=== PATIENT | male | born 1940 | race African-American/Black ===

== ENCOUNTER 2018-01-22 09:09 | Inpatient (IN) | payer MEDICARE ==
[~2018-01-22] VITALS: Ht 165.1 cm; Wt 80.3 kg
[2018-01-22 10:15] LABS: BASOPHILS % 0.6 % (0.0-2.0); HEMOGLOBIN. 14.7 g/dL (14.0-18.0); MEAN CORPUSCULAR HEMOGLOBIN 28.8 pg (28.0-32.0); MEAN CORPUSCULAR VOLUME 88.1 fL (80.0-94.0); MEAN PLATELET VOLUME 8.1 fl (7.4-10.4); MONOCYTES % 6.3 % (2.0-8.0); NEUTROPHILS % 78.1 % (40.0-76.0); PLATELET 143 x1000/uL (130-400)
[2018-01-22 10:22] LABS: CHLORIDE 105 mEq/L (98-107)
[2018-01-22 10:27] LABS: INR 1.1; PROTHROMBIN TIME 11.1 sec (9.1-11.1)
[2018-01-22] MEDS ORDERED: ASPIRIN 325MG EC TABLET PO ONE (10:45)
[2018-01-22] MEDS ORDERED: LIDOCAINE HCL/PF 1% 2ML VIAL ONE (12:56)
[2018-01-22 13:35] VITALS: BP 137/62
[2018-01-22] MEDS ORDERED: HYDROCODONE/ACETAMINOPHEN 10/325MG TABLET PO PRN (14:00)
[2018-01-22] MEDS ORDERED: ACETAMINOPHEN 650MG/20.3ML UDC GT PRN (14:00)
[2018-01-22] MEDS ORDERED: ONDANSETRON HCL 4MG/2ML INJ IV PRN (14:00)
[2018-01-22] MEDS ORDERED: MAGNESIUM/ALUMINUM HYDROXIDE/SIMETHICONE 30ML UDC PO PRN (14:00)
[2018-01-22] MEDS ORDERED: ACETAMINOPHEN 650MG SUPP PR PRN (14:00)
[2018-01-22] MEDS ORDERED: ACETAMINOPHEN 325MG TABLET PO PRN (14:00)
[2018-01-22 14:05] VITALS: BP 137/62
[2018-01-22] MEDS: HYDROCODONE/ACETAMINOPHEN 5/325MG TABLET PO PRN (14:24)
[2018-01-22] MEDS: IPRATROPIUM/ALBUTEROL 0.5-3(2.5)MG/3ML NEB INH SCH ×2 (14:50→21:10)
[2018-01-22] MEDS ORDERED: IPRATROPIUM/ALBUTEROL 0.5-3(2.5)MG/3ML NEB HHN PRN (15:00)
[2018-01-22 15:40] LABS: BG FRACTION INSPIRED OXYGEN 36; BG PCO2 32.2 mmHg (35.0-45.0); BG PH 7.427 (7.350-7.450); BG PO2 73.6 mmHg (75.0-100.0); BG SAMPLE SITE RIGHT RADIAL; BG VENT MODE NASAL CANNULA
[2018-01-22 15:41] LABS: BG BASE EXCESS -2.6 mmol/L (-2.0-2.0); BG CARBOXYHEMOGLOBIN 1.4 % (0.5-1.5); BG DEOXYHEMOGLOBIN 3.7 % (0.0-5.0); BG HCO3 ACT 20.7 mmol/L (22.0-26.0); BG METHEMOGLOBIN 0.5 % (0.0-1.5); BG OXYGEN SATURATION 96.2 % (92.0-98.5); BG OXYHEMOGLOBIN 94.4 % (94.0-97.0); BG TOTAL HEMOGLOBIN 15.1 g/dL (12.0-18.0)
[2018-01-22 15:45] LABS: FOLIC ACID (FOLATE) SERUM 19.3 ng/mL (>5.38)
[2018-01-22 16:00] VITALS: BP 145/86
[2018-01-22] MEDS ORDERED: CARB1TAB2 PO (16:27)
[2018-01-22] MEDS ORDERED: MEMA21CA PO (16:27)
[2018-01-22] MEDS ORDERED: QUET25TA PO (16:27)
[2018-01-22] MEDS ORDERED: CARBIDOPA/LEVODOPA 25/100MG TABLET CR PO SCH (18:15)
[2018-01-22] MEDS: QUETIAPINE FUMARATE 25MG TABLET PO SCH (18:29)
[2018-01-22] MEDS ORDERED: HALOPERIDOL LACTATE 5MG/ML VIAL IM PRN (18:30)
[2018-01-22] MEDS: CARBIDOPA/LEVODOPA 25/100MG TABLET CR PO SCH ×2 (19:00→19:11)
[2018-01-22 20:00] VITALS: BP 128/65
[2018-01-22 21:14] LABS: CREATINE KINASE MB FRACTION 1.1 ng/mL (0.5-3.6)
[2018-01-23] VITALS (7 sets, daily range): BP systolic 129–147; BP diastolic 60–89
[2018-01-23 00:40] LABS: CREATINE KINASE MB FRACTION 1.7 ng/mL (0.5-3.6)
[2018-01-23] MEDS: IPRATROPIUM/ALBUTEROL 0.5-3(2.5)MG/3ML NEB INH SCH ×2 (02:51→08:34)
[2018-01-23 07:35] LABS: BASOPHILS % 0.4 % (0.0-2.0); EOSINOPHILS % 0.5 % (0.0-5.0); HEMOGLOBIN. 13.5 g/dL (14.0-18.0); LYMPHOCYTES % 13.8 % (20.0-50.0); MEAN CORPUSCULAR HEMOGLOBIN 29.1 pg (28.0-32.0); MEAN CORPUSCULAR VOLUME 88.3 fL (80.0-94.0); MEAN PLATELET VOLUME 8.4 fl (7.4-10.4); MONOCYTES % 13.3 % (2.0-8.0); PLATELET 137 x1000/uL (130-400); RED BLOOD CELL COUNT 4.64 mill/uL (4.7-6.1); RED CELL DISTRIBUTION WIDTH 18.1 % (11.6-14.6)
[2018-01-23 07:57] LABS: CHLORIDE 105 mEq/L (98-107)
[2018-01-23 08:04] LABS: PHOSPHORUS 2.7 mg/dL (2.5-4.9)
[2018-01-23 08:05] LABS: LDL CHOLESTEROL 83 mg/dL (5-100)
[2018-01-23 08:07] LABS: HDL CHOLESTEROL 50 mg/dL (40-59)
[2018-01-23] MEDS: MEMANTINE HCL 5MG TABLET PO SCH ×3 (09:00→17:58)
[2018-01-23] MEDS: QUETIAPINE FUMARATE 25MG TABLET PO SCH ×2 (09:00→17:58)
[2018-01-23] MEDS: CARBIDOPA/LEVODOPA 25/100MG TABLET CR PO SCH ×3 (09:00→17:58)
[2018-01-23] MEDS ORDERED: QUETIAPINE FUMARATE 25MG TABLET PO SCH (09:00)
[2018-01-23] MEDS ORDERED: IPRATROPIUM/ALBUTEROL 0.5-3(2.5)MG/3ML NEB HHN PRN (13:15)
[2018-01-23] MEDS: ENOXAPARIN 80MG/0.8ML SYR SUBCUT SCH (13:41)
[2018-01-23] MEDS: HYDROCODONE/ACETAMINOPHEN 5/325MG TABLET PO PRN (13:42)
[2018-01-23] MEDS ORDERED: IOHEXOL-350 100 ML BOTTLE ONE (15:07)
[2018-01-23] MEDS: IPRATROPIUM/ALBUTEROL 0.5-3(2.5)MG/3ML NEB HHN SCH ×2 (15:28→21:08)
[2018-01-24] VITALS: BP 119/53
[2018-01-24] MEDS: IPRATROPIUM/ALBUTEROL 0.5-3(2.5)MG/3ML NEB HHN SCH ×4 (01:00→20:14)
[2018-01-24] MEDS: ENOXAPARIN 80MG/0.8ML SYR SUBCUT SCH ×2 (01:29→13:17)
[2018-01-24 04:00] VITALS: BP 140/72
[2018-01-24 07:17] LABS: BASOPHILS % 0.4 % (0.0-2.0); EOSINOPHILS % 1.9 % (0.0-5.0); HEMOGLOBIN. 12.5 g/dL (14.0-18.0); MEAN PLATELET VOLUME 8.2 fl (7.4-10.4); MONOCYTES % 14.8 % (2.0-8.0); NEUTROPHILS % 66.9 % (40.0-76.0); PLATELET 150 x1000/uL (130-400); RED BLOOD CELL COUNT 4.31 mill/uL (4.7-6.1); RED CELL DISTRIBUTION WIDTH 17.5 % (11.6-14.6)
[2018-01-24 08:00] VITALS: BP 128/68
[2018-01-24] MEDS: MEMANTINE HCL 5MG TABLET PO SCH ×3 (09:04→18:22)
[2018-01-24] MEDS: QUETIAPINE FUMARATE 25MG TABLET PO SCH ×2 (09:04→18:22)
[2018-01-24] MEDS: CARBIDOPA/LEVODOPA 25/100MG TABLET CR PO SCH ×3 (09:04→18:22)
[2018-01-24 09:16] LABS: CHLORIDE 103 mEq/L (98-107)
[2018-01-24 09:25] LABS: PHOSPHORUS 2.5 mg/dL (2.5-4.9)
[2018-01-24 13:31] LABS: BG BASE EXCESS 2.3 mmol/L (-2.0-2.0); BG DEOXYHEMOGLOBIN 2.2 % (0.0-5.0); BG FRACTION INSPIRED OXYGEN 30; BG HCO3 ACT 25.9 mmol/L (22.0-26.0); BG METHEMOGLOBIN 0.5 % (0.0-1.5); BG OXYGEN SATURATION 97.8 % (92.0-98.5); BG OXYHEMOGLOBIN 96.3 % (94.0-97.0); BG PCO2 36.6 mmHg (35.0-45.0); BG PH 7.467 (7.350-7.450); BG SAMPLE SITE RIGHT BRACHIAL; BG TOTAL HEMOGLOBIN 13.4 g/dL (12.0-18.0); BG VENT MODE NASAL CANNULA
[2018-01-24 16:23] VITALS: BP 116/64
[2018-01-24 20:00] VITALS: BP 129/70
[2018-01-24] MEDS ORDERED: CLONIDINE 0.1MG TABLET PO NR (20:00)
[2018-01-24] MEDS: AMLODIPINE 5MG TABLET PO SCH (20:32)
[2018-01-25] VITALS: BP 135/60
[2018-01-25] MEDS: IPRATROPIUM/ALBUTEROL 0.5-3(2.5)MG/3ML NEB HHN SCH ×4 (00:41→19:48)
[2018-01-25] MEDS: ENOXAPARIN 80MG/0.8ML SYR SUBCUT SCH ×3 (00:47→12:47)
[2018-01-25 04:00] VITALS: BP 156/99
[2018-01-25 05:36] LABS: BASOPHILS % 0.7 % (0.0-2.0); HEMATOCRIT. 40.8 % (42.0-52.0); HEMOGLOBIN. 13.4 g/dL (14.0-18.0); LYMPHOCYTES % 20.6 % (20.0-50.0); MEAN CORPUSCULAR HEMOGLOBIN 28.8 pg (28.0-32.0); MEAN CORPUSCULAR VOLUME 87.6 fL (80.0-94.0); MEAN PLATELET VOLUME 8.2 fl (7.4-10.4); MONOCYTES % 12.7 % (2.0-8.0); PLATELET 174 x1000/uL (130-400); RED BLOOD CELL COUNT 4.66 mill/uL (4.7-6.1); RED CELL DISTRIBUTION WIDTH 18.2 % (11.6-14.6)
[2018-01-25 05:43] LABS: CHLORIDE 104 mEq/L (98-107)
[2018-01-25] MEDS: MEMANTINE HCL 5MG TABLET PO SCH ×3 (08:42→18:34)
[2018-01-25] MEDS: QUETIAPINE FUMARATE 25MG TABLET PO SCH ×2 (08:42→18:34)
[2018-01-25] MEDS: CARBIDOPA/LEVODOPA 25/100MG TABLET CR PO SCH ×3 (08:42→18:34)
[2018-01-25] MEDS: AMLODIPINE 5MG TABLET PO SCH ×2 (08:42→21:39)
[2018-01-25 12:03] VITALS: BP 133/72
[2018-01-25 16:09] VITALS: BP 122/70
[2018-01-25] MEDS ORDERED: APIXABAN 5 MG TABLET PO SCH (17:00)
[2018-01-25] MEDS ORDERED: LEVO500P13 IV (17:32)
[2018-01-25 17:33] VITALS: BP 117/79
[2018-01-25] MEDS ORDERED: LEVOFLOXACIN 500MG PREMIX 100 ML IV SCH (18:00)
[2018-01-25 20:00] VITALS: BP 115/52
== END 2018-01-25 22:45 | DRG 280 ==
LOC: EDBD 09:09 → ER 09:42 → 8WST 10:45 → ENRESERV 12:49
PROVIDERS: ADMIT Internal Medicine; ATTEND Internal Medicine
PROC: 4A00X4Z Measurement of Central Nervous Electrical Activity, External Approach (ICD-10-PCS; principal; 2018-01-24)
DX: I21.4 Non-ST elevation (NSTEMI) myocardial infarction (principal); I26.99 Other pulmonary embolism without acute cor pulmonale; J96.01 Acute respiratory failure with hypoxia; G93.40 Encephalopathy, unspecified; J18.1 Lobar pneumonia, unspecified organism; I82.411 Acute embolism and thrombosis of right femoral vein; F02.81 Dementia in other diseases classified elsewhere, unspecified severity, with behavioral disturbance; G91.9 Hydrocephalus, unspecified; D68.59 Other primary thrombophilia; J98.11 Atelectasis; G90.8 Other disorders of autonomic nervous system; W19.XXXA Unspecified fall, initial encounter; G20 Parkinson's disease; G30.9 Alzheimer's disease, unspecified; G93.89 Other specified disorders of brain; R27.0 Ataxia, unspecified; D64.9 Anemia, unspecified; E78.5 Hyperlipidemia, unspecified; I11.9 Hypertensive heart disease without heart failure; N40.0 Benign prostatic hyperplasia without lower urinary tract symptoms; Y93.89 Activity, other specified; Y92.89 Other specified places as the place of occurrence of the external cause; Y99.8 Other external cause status; Z86.73 Personal history of transient ischemic attack (TIA), and cerebral infarction without residual deficits
CPT/HCPCS: 36415; 36600; 70450; 71045; 71275; 80048; 80053; 80061; 82375; 82550; 82553; 82607; 82746; 82805; 83036; 83690; 83735; 83880; 84100; 84439; 84443; 84481; 84484; 85025; 85379; 85610; 92610; 93005; 93306; 93880; 94640; 97116; 97162; 97530; 99285; C1893; J1650; J1956; J3490; J7050; J7620; Q9967

== ENCOUNTER 2018-08-31 15:01 | Emergency (ER) | payer MEDICARE ==
[~2018-08-31] VITALS: Ht 175.3 cm; Wt 69.1 kg
[~2018-08-31 15:01] MED LIST: CARB1TAB2 PO; LEVO500P13 IV; MEMA21CA PO; QUET25TA PO
[2018-08-31] MEDS ORDERED: LIDOCAINE HCL/PF 1% 10 MG/ML 5ML VIAL IJ ONE (19:15)
[2018-08-31] MEDS ORDERED: BACITRACIN ZINC OINT UDPKT TOP ONE (19:15)
[2018-08-31] MEDS ORDERED: ACETAMINOPHEN 325MG TABLET PO STA (19:20)
[2018-08-31 20:45] VITALS: BP 122/72
== END 2018-08-31 20:45 | disposition home or self-care (01) ==
LOC: ER 15:01
DX: S01.81XA Laceration without foreign body of other part of head, initial encounter (principal); G30.9 Alzheimer's disease, unspecified; F02.80 Dementia in other diseases classified elsewhere, unspecified severity, without behavioral disturbance, psychotic disturbance, mood disturbance, and anxiety; G20 Parkinson's disease; Z98.890 Other specified postprocedural states; Z79.899 Other long term (current) drug therapy; W06.XXXA Fall from bed, initial encounter; Y93.89 Activity, other specified; Y92.89 Other specified places as the place of occurrence of the external cause; Y99.8 Other external cause status
CPT/HCPCS: 12011; 70450; 99284; J3490

== ENCOUNTER 2018-09-07 09:34 | Emergency (ER) | payer MEDICARE ==
[~2018-09-07] VITALS: Ht 165.1 cm; Wt 69.0 kg
[2018-09-07 11:38] VITALS: BP 120/81
== END 2018-09-07 11:39 | disposition home or self-care (01) ==
LOC: ER 09:34
DX: S01.111D Laceration without foreign body of right eyelid and periocular area, subsequent encounter (principal); J45.909 Unspecified asthma, uncomplicated; F03.90 Unspecified dementia, unspecified severity, without behavioral disturbance, psychotic disturbance, mood disturbance, and anxiety; Z98.890 Other specified postprocedural states; Z79.899 Other long term (current) drug therapy; X58.XXXD Exposure to other specified factors, subsequent encounter
CPT/HCPCS: 99282